=== PATIENT | female | born 1995 | race Caucasian/White ===

== ENCOUNTER 2017-06-30 20:14 | Emergency (ER) | payer OTHER ==
[~2017-06-30] VITALS: Ht 154.9 cm; Wt 87.9 kg
[2017-06-30 20:57] LABS: HEMATOCRIT 30.6 % (34.6-47.8); HEMOGLOBIN 9.5 g/dL (11.7-16.4); WHITE BLOOD COUNT 8.1 x10^3/uL (3.4-10)
[2017-06-30] MEDS ORDERED: SODIUM CHLORIDE FLUSH 10ML SYR IVF ONE (21:00)
[2017-06-30 21:10] LABS: ASPARTATE AMINO TRANSFERASE 15 U/L (15-37); BLOOD UREA NITROGEN 9 mg/dL (7-18)
[2017-06-30 21:32] LABS: TOTAL IRON BINDING CAPACITY 424 mcg/dL (250-450)
[2017-06-30 23:34] VITALS: BP 116/51
== END 2017-06-30 23:36 | disposition home or self-care (01) ==
LOC: ED 23:14
DX: J45.909 Unspecified asthma, uncomplicated (principal); K59.00 Constipation, unspecified; D50.9 Iron deficiency anemia, unspecified
CPT/HCPCS: 36415; 74000; 76700; 80053; 81003; 83540; 83550; 83690; 84703; 85025; 99285

== ENCOUNTER 2018-03-06 12:42 | Emergency (ER) | payer MEDICAID, OTHER ==
[~2018-03-06] VITALS: Ht 154.9 cm; Wt 90.1 kg
[2018-03-06 13:11] VITALS: BP 116/74
[2018-03-06] MEDS ORDERED: DEXAMETHASONE 4 MG/ML, 1ML PO ONE (13:30)
== END 2018-03-06 14:06 | disposition home or self-care (01) ==
LOC: ED 14:00
DX: J02.9 Acute pharyngitis, unspecified (principal); R50.9 Fever, unspecified; G43.909 Migraine, unspecified, not intractable, without status migrainosus; J45.909 Unspecified asthma, uncomplicated; Z88.0 Allergy status to penicillin
CPT/HCPCS: 71046; 99284

== ENCOUNTER 2018-07-29 22:03 | Emergency (ER) | payer OTHER ==
[~2018-07-29] VITALS: Ht 154.9 cm; Wt 88.2 kg
[2018-07-29 22:42] VITALS: BP 110/71
[2018-07-29] MEDS ORDERED: DEXAMETHASONE 1 MG TABLET PO STA (22:57)
[2018-07-29] MEDS ORDERED: CEFDINIR 300 MG CAPSULE PO STA (22:57)
[2018-07-29] MEDS ORDERED: DEXAMETHASONE 4 MG TABLET PO STA (23:00)
[2018-07-29] MEDS ORDERED: DEXAMETHASONE 4 MG TABLET ONE (23:08)
[2018-07-29] MEDS ORDERED: CEFDINIR 300 MG CAPSULE ONE (23:08)
== END 2018-07-29 23:35 | disposition home or self-care (01) ==
LOC: ED 23:29
DX: J02.0 Streptococcal pharyngitis (principal); F17.290 Nicotine dependence, other tobacco product, uncomplicated
CPT/HCPCS: 99283; 99406

== ENCOUNTER 2019-01-06 00:01 | Emergency (ER) | payer MEDICAID ==
[~2019-01-06] VITALS: Ht 154.9 cm; Wt 88.0 kg
[2019-01-06 00:07] VITALS: BP 119/76
[2019-01-06] MEDS ORDERED: ACETAMINOPHEN 500 MG TABLET ONE (00:37)
--- NOTE | 2019-01-06 00:40 | NUR ---
PT MEDICATED PER MAR. POC DISCUSSED. PT AWARE UA IS NEEDED. UA CUP GIVEN. LAB AT BEDSIDE AT THIS TIME.
[2019-01-06 01:00] LABS: ALBUMIN 3.4 g/dL (3.4-5.0); ANION GAP 8 mmol/L (5-15); CALCIUM 8.1 mg/dL (8.5-10.1); CHLORIDE 108 mmol/L (98-107); CREATININE 0.58 mg/dL (0.55-1.02); MEAN CORPUSCULAR HEMOGLOBIN 21.9 pg (27.0-34.8); MEAN CORPUSCULAR HGB CONC 32.1 g/dL (32.4-35.8); MEAN CORPUSCULAR VOLUME 68.2 fL (80-100); MEAN PLATELET VOLUME 7.7 fL (7.4-10.4); PLATELET COUNT 322 x10^3/uL (130-400); RED BLOOD COUNT 4.58 x10^6/uL (3.82-5.3); RED CELL DISTRIBUTION WIDTH 24.6 % (9.6-15.2)
[2019-01-06] MEDS ORDERED: ACETAMINOPHEN 500 MG TABLET PO ONE (01:00)
[2019-01-06 01:46] LABS: CULTURE INDICATED? YES; MICROSCOPIC INDICATED
[2019-01-06 03:04] LABS: BASOPHILS # (AUTO) 0.09 x10^3/uL (0-0.1); BASOPHILS % (AUTO) 1 % (0-1); EOSINOPHILS # (AUTO) 0.13 x10^3/uL (0-0.4); EOSINOPHILS % (AUTO) 2 % (1-7); LYMPHOCYTES # (AUTO) 1.94 x10^3/uL (1-3.4); LYMPHOCYTES % (AUTO) 26 % (22-44); MD SCAN; MONOCYTES # (AUTO) 0.57 x10^3/uL (0.2-0.8); MONOCYTES % (AUTO) 8 % (2-9); NEUTROPHILS # (AUTO) 4.64 x10^3/uL (1.8-6.8); NEUTROPHILS % (AUTO) 63 % (42-75)
== END 2019-01-06 02:19 | disposition home or self-care (01) ==
LOC: ED 00:51
DX: O03.4 Incomplete spontaneous abortion without complication (principal); J45.909 Unspecified asthma, uncomplicated; Z87.891 Personal history of nicotine dependence
CPT/HCPCS: 36415; 76801; 80048; 81001; 82040; 84702; 85025; 87086; 99284

== ENCOUNTER 2019-01-12 12:05 | Emergency (ER) | payer MEDICAID ==
[~2019-01-12] VITALS: Ht 154.9 cm; Wt 87.5 kg
[2019-01-12 12:11] VITALS: BP 131/62
== END 2019-01-12 13:27 | disposition home or self-care (01) ==
LOC: ED 13:09
DX: J02.8 Acute pharyngitis due to other specified organisms (principal); B97.89 Other viral agents as the cause of diseases classified elsewhere; J45.909 Unspecified asthma, uncomplicated
CPT/HCPCS: 87081; 87147; 87880; 99283

== ENCOUNTER 2019-04-21 15:05 | Emergency (ER) | payer MEDICAID ==
[~2019-04-21] VITALS: Ht 154.9 cm; Wt 86.7 kg
[2019-04-21 15:06] VITALS: BP 126/62
[2019-04-21 15:48] LABS: HCG UR SG 1.028 (1.003-1.030); MICROSCOPIC NOT IND
[2019-04-21 15:50] LABS: CULTURE INDICATED? NO
[2019-04-21 17:54] LABS: CLUE CELLS NONE SEEN (NONE SEEN); WET PREP WBCS FEW (FEW)
--- NOTE | 2019-04-21 18:24 | NUR ---
Patient given discharge instructions and they have confirmed that they understand the instructions. Patient ambulatory with steady gait. Pt left with d/c paperwork, prescription, and all personal belongings.
== END 2019-04-21 18:28 | disposition home or self-care (01) ==
LOC: ED 18:10
DX: N89.8 Other specified noninflammatory disorders of vagina (principal); J45.909 Unspecified asthma, uncomplicated; Z87.891 Personal history of nicotine dependence
CPT/HCPCS: 81003; 81025; 87210; 87491; 87591; 87808; 99283

== ENCOUNTER 2019-09-20 18:15 | Emergency (ER) | payer MEDICAID ==
[~2019-09-20] VITALS: Ht 154.9 cm; Wt 90.5 kg
--- NOTE | 2019-09-20 19:39 | NUR ---
C/O MIGRAINE X4 HOURS, STARTED WITH BLURRY VISION. NAUSEATED AT BEGINNING OF MIGRAINE, BUT DENIES NOW. HX MIGRAINES. 11 WEEKS . PT LOOKING FOR BABY SAFE MIGRAINE RELEIF. CONNECTED TO MONITORING. CALL LIGHT IN REACH.
[2019-09-20] MEDS ORDERED: METOCLOPRAMIDE 5 MG/ML, 2ML IVPush ONE (20:30)
[2019-09-20] MEDS ORDERED: DIPHENHYDRAMINE 50 MG/ML, 1ML IVPush ONE (20:30)
[2019-09-20] MEDS ORDERED: SODIUM CHLORIDE 0.9% 1,000ML IVBOLUS ONE (20:30)
[2019-09-20] MEDS ORDERED: METOCLOPRAMIDE 5 MG/ML, 2ML ONE (20:47)
[2019-09-20] MEDS ORDERED: DIPHENHYDRAMINE 50 MG/ML, 1ML ONE (20:47)
--- NOTE | 2019-09-20 21:04 | NUR ---
IV PLACED. MEDS ADMINISTERED PER JAN. PT HAD JUST USED THE RESTROOM. WILL PROVIDE URINE SAMPLE AFTER IVF ADMIN. PT RESTING ON GURNEY WATCHING TV. YAO.
--- NOTE | 2019-09-20 21:53 | NUR ---
PT AMBULATED TO RESTROOM WITH STEADY GAIT TO PROVIDE URINE SAMPLE. SAMPLE COLLECTED AND SENT TO LAB.
[2019-09-20 22:09] LABS: HCG UR SG 1.015 (1.003-1.030)
--- NOTE | 2019-09-20 22:11 | NUR ---
ALL RESULTS ARE BACK AT THIS TIME. CHART UP FOR RECHECK.
[2019-09-20 22:32] LABS: MICROSCOPIC AUTO
[2019-09-20 22:33] LABS: CULTURE INDICATED? YES
--- NOTE | 2019-09-20 22:42 | NUR ---
ALL RESULTS ARE BACK AT THIS TIME. CHART UP FOR RECHECK.
[2019-09-20 22:56] VITALS: BP 114/48
== END 2019-09-20 22:58 | disposition home or self-care (01) ==
LOC: ED 22:24
DX: O26.891 Other specified pregnancy related conditions, first trimester (principal); G43.119 Migraine with aura, intractable, without status migrainosus; J45.909 Unspecified asthma, uncomplicated; Z3A.11 11 weeks gestation of pregnancy
CPT/HCPCS: 81001; 81025; 87086; 96374; 96375; 99283; J1200; J2765; J7030

== ENCOUNTER 2019-10-17 23:03 | Emergency (ER) | payer MEDICAID ==
[~2019-10-17] VITALS: Ht 154.9 cm; Wt 88.0 kg
[2019-10-17 23:06] VITALS: BP 146/70
[2019-10-18 00:32] LABS: RAPID INFLUENZA A Negative (Negative); RAPID INFLUENZA B Negative (Negative)
--- NOTE | 2019-10-18 01:40 | NUR ---
TO ROOM 37
[2019-10-19] MEDS ORDERED: PRENATAL VITAMIN (17:48)
== END 2019-10-18 02:12 | disposition home or self-care (01) ==
LOC: ED 10-18 01:56
DX: O99.512 Diseases of the respiratory system complicating pregnancy, second trimester (principal); O26.892 Other specified pregnancy related conditions, second trimester; J45.909 Unspecified asthma, uncomplicated; G43.909 Migraine, unspecified, not intractable, without status migrainosus; J00 Acute nasopharyngitis [common cold]; Z3A.15 15 weeks gestation of pregnancy
CPT/HCPCS: 71045; 76805; 87400; 93005; 99284

== ENCOUNTER 2019-10-19 17:04 | Emergency (ER) ==
[~2019-10-19] VITALS: Ht 154.9 cm; Wt 88.0 kg
[2019-10-19] MEDS ORDERED: PRENATAL VITAMIN (17:48)
--- NOTE | 2019-10-19 17:48 | NUR ---
PT TO ED FOR COUGH, RUNNY NOSE, FEVER AND BODY ACHES SINCE SATURDAY. PT WAS SEEN HERE AND SWABBED FOR FLU, WHICH SHE REPORTS WAS NEGATIVE. PT STATES SYMPTOMS ARE WORSE. PT STATES SHE WAS TOLD TO FOLLOW UP WITH OB (IS 15 WEEKS ) WHO WON'T SEE HER UNTIL NAME OF VIRUS IS CONFIRMED. PT ONNECTED TO MONITORS. TACHY WITH COUGHING, BUT VSS. NO NEEDS EXPRESSED. CALL LIGHT WITHIN REACH. AWAITNG EDMD ASSESSMENT.
--- NOTE | 2019-10-19 17:51 | NUR ---
DR. CASTRO TO BS FOR ASSESSMENT.
[2019-10-19] MEDS ORDERED: SODIUM CHLORIDE 0.9% 1,000ML IVBOLUS ONE ×2 (18:00→19:00)
[2019-10-19] MEDS ORDERED: IBUPROFEN 600 MG TABLET PO ONE (18:00)
[2019-10-19] MEDS ORDERED: ONDANSETRON 2MG/ML, 2ML IVPush ONE (18:00)
--- NOTE | 2019-10-19 18:02 | NUR ---
BREAK RN: PT SITTING UP ON GURNEY AWAKE & COMFORTABLE, RESPONDS APPROP TO STAFF, NAD, COMFORT MEASURES PROVIDED, CALL LIGHT WITHIN REACH.
[2019-10-19] MEDS ORDERED: IBUPROFEN 600 MG TABLET ONE (18:18)
[2019-10-19] MEDS ORDERED: ONDANSETRON 2MG/ML, 2ML ONE (18:18)
[2019-10-19 18:19] LABS: MEAN CORPUSCULAR HEMOGLOBIN 25.8 pg (27.0-34.8); MEAN CORPUSCULAR VOLUME 78.2 fL (80-100); MEAN PLATELET VOLUME 8.3 fL (7.4-10.4); PLATELET COUNT 178 x10^3/uL (130-400); RED BLOOD COUNT 4.28 x10^6/uL (3.82-5.3)
[2019-10-19 18:21] LABS: ANION GAP 7 mmol/L (5-15); CALCIUM 8.4 mg/dL (8.5-10.1); CHLORIDE 107 mmol/L (98-107); CREATININE 0.52 mg/dL (0.55-1.02)
[2019-10-19 18:48] LABS: BASOPHILS # (AUTO) 0.01 x10^3/uL (0-0.1); BASOPHILS % (AUTO) 0 % (0-1); EOSINOPHILS % (AUTO) 0 % (1-7); LYMPHOCYTES # (AUTO) 0.63 x10^3/uL (1-3.4); LYMPHOCYTES % (AUTO) 16 % (22-44); MD SCAN; MONOCYTES # (AUTO) 0.52 x10^3/uL (0.2-0.8); MONOCYTES % (AUTO) 13 % (2-9); NEUTROPHILS # (AUTO) 2.87 x10^3/uL (1.8-6.8); NEUTROPHILS % (AUTO) 71 % (42-75)
[2019-10-19 18:49] LABS: RED CELL DISTRIBUTION WIDTH 22.1 % (9.6-15.2)
[2019-10-19 18:51] VITALS: BP 113/57
--- NOTE | 2019-10-19 18:52 | NUR ---
PT RESTING IN ROOM. VSS. IVF COMPLETE. NO NEEDS EXPRESSED. CALL LIGHT WITHIN REACH. ALL RESULTS BACK. CHART UP FOR RECHECK.
--- NOTE | 2019-10-19 19:08 | NUR ---
2nd liter ns infusing. vss. no needs expressed. awaiting further orders.
== END 2019-10-19 19:48 | disposition home or self-care (01) ==
LOC: ED 19:16
DX: O26.892 Other specified pregnancy related conditions, second trimester (principal); B34.9 Viral infection, unspecified; J45.909 Unspecified asthma, uncomplicated
CPT/HCPCS: 36415; 80048; 85025; 96374; 99283; J2405; J7030

== ENCOUNTER 2020-01-26 20:17 | Emergency (ER) | payer MEDICAID ==
[~2020-01-26] VITALS: Ht 154.9 cm; Wt 97.9 kg
[~2020-01-26 20:17] MED LIST: PRENATAL VITAMIN
[2020-01-26 20:22] VITALS: BP 138/74
[2020-01-26 21:28] LABS: RAPID INFLUENZA A Negative (Negative); RAPID INFLUENZA B Negative (Negative)
== END 2020-01-26 21:43 | disposition home or self-care (01) ==
LOC: ED 21:10
DX: O98.513 Other viral diseases complicating pregnancy, third trimester (principal); B34.9 Viral infection, unspecified; Z3A.29 29 weeks gestation of pregnancy
CPT/HCPCS: 71046; 87400; 99284

== ENCOUNTER 2020-04-04 03:03 | Outpatient (CLI) | payer MEDICAID ==
[~2020-04-04] VITALS: Ht 154.9 cm; Wt 103.2 kg
[2020-04-04] MEDS ORDERED: PREN1TAB60 PO (17:55)
[2020-04-04] MEDS ORDERED: FERR142T13 PO (17:56)
== END 2020-04-04 04:30 | disposition home or self-care (01) ==
LOC: LDOP 03:03
PROVIDERS: ATTEND Obstetrics & Gynecology
DX: O26.893 Other specified pregnancy related conditions, third trimester (principal); R10.9 Unspecified abdominal pain; Z3A.39 39 weeks gestation of pregnancy
CPT/HCPCS: 59025; 99211; G0463

== ENCOUNTER 2020-04-04 17:26 | Inpatient (IN) | payer MEDICAID ==
[~2020-04-04] VITALS: Ht 154.9 cm; Wt 103.1 kg
[2020-04-04] MEDS ORDERED: PREN1TAB60 PO (17:55)
[2020-04-04] MEDS ORDERED: FERR142T13 PO (17:56)
[2020-04-04] MEDS ORDERED: NEWBORN KIT ONE (18:01)
[2020-04-04] MEDS ORDERED: OXYTOCIN 30U/ 0.9% NaCL 500ML 500 ML IV PRN ×2 (18:07→22:33)
[2020-04-04] MEDS: D5%-LACTATED RINGERS 1,000 ML IV SCH (18:07)
[2020-04-04] MEDS ORDERED: OXYTOCIN 30U/ 0.9% NaCL 500ML 500 ML IV ONE (18:17)
[2020-04-04] MEDS ORDERED: FENTANYL PF 100 MCG/2ML IVPush PRN (18:30)
[2020-04-04] MEDS: LACTATED RINGERS 1,000 ML IV SCH ×2 (18:30→22:57)
[2020-04-04] MEDS ORDERED: TERBUTALINE 1 MG/ML, 1ML IVPush PRN (18:30)
[2020-04-04] MEDS ORDERED: ONDANSETRON 2MG/ML, 2ML IVPush PRN (18:30)
[2020-04-04] MEDS ORDERED: TERBUTALINE 1 MG/ML, 1ML SQ PRN (18:30)
[2020-04-04] MEDS ORDERED: FENTANYL PF 100 MCG/2ML ONE ×2 (18:40→23:30)
[2020-04-04] MEDS: VANCOMYCIN PMX 1GM/200ML 200 ML IVPB SCH (18:46)
[2020-04-04 18:53] LABS: BASOPHILS # (AUTO) 0.04 x10^3/uL (0-0.1); BASOPHILS % (AUTO) 0 % (0-1); EOSINOPHILS # (AUTO) 0.01 x10^3/uL (0-0.4); EOSINOPHILS % (AUTO) 0 % (1-7); LYMPHOCYTES # (AUTO) 1.24 x10^3/uL (1-3.4); LYMPHOCYTES % (AUTO) 10 % (22-44); MD NO; MEAN CORPUSCULAR HEMOGLOBIN 28.4 pg (27.0-34.8); MEAN CORPUSCULAR HGB CONC 33.3 g/dL (32.4-35.8); MEAN CORPUSCULAR VOLUME 85.4 fL (80-100); MEAN PLATELET VOLUME 8.6 fL (7.4-10.4); MONOCYTES # (AUTO) 0.73 x10^3/uL (0.2-0.8); MONOCYTES % (AUTO) 6 % (2-9); NEUTROPHILS # (AUTO) 10.36 x10^3/uL (1.8-6.8); NEUTROPHILS % (AUTO) 84 % (42-75); PLATELET COUNT 215 x10^3/uL (130-400); RED BLOOD COUNT 4.33 x10^6/uL (3.82-5.3); RED CELL DISTRIBUTION WIDTH 18.6 % (9.6-15.2)
[2020-04-04] MEDS ORDERED: OXYTOCIN 30U/ 0.9% NaCL 500ML 500 ML ONE (21:11)
[2020-04-04] MEDS ORDERED: LIDOCAINE 1%, 20ML ONE (21:11)
[2020-04-04 21:21] VITALS: BP 127/69
[2020-04-04] MEDS ORDERED: FENTANYL/BUPIV./NS/PF 250 ML EPIDCONT SCH (22:32)
[2020-04-04] MEDS ORDERED: FENTANYL PF 500 MCG, BUPIVACAINE/PF 0.5%, 30ML 62.5 ML in SODIUM CHLORIDE 0.9% 177.5 ML EPIDCONT SCH (23:00)
[2020-04-04] MEDS ORDERED: BUPIVACAINE 0.25% ONE ×2 (23:30→23:35)
[2020-04-04] MEDS ORDERED: LIDOCAINE/PF 1.5%-EPI 1:200K, 30ML ONE (23:35)
[2020-04-05] MEDS: D5%-LACTATED RINGERS 1,000 ML IV SCH (00:18)
[2020-04-05 01:16] VITALS: BP 107/58
[2020-04-05] MEDS: LACTATED RINGERS 1,000 ML IV SCH ×2 (01:56→09:32)
[2020-04-05] MEDS: VANCOMYCIN PMX 1GM/200ML 200 ML IVPB SCH (06:02)
[2020-04-05] MEDS ORDERED: OXYTOCIN 30U/ 0.9% NaCL 500ML 500 ML ONE (09:18)
[2020-04-05 09:50] VITALS: BP 108/60
[2020-04-05 11:45] VITALS: BP 112/71
[2020-04-05] MEDS: OXYTOCIN 30U/ 0.9% NaCL 500ML 500 ML IV SCH (14:07)
[2020-04-05] MEDS ORDERED: ACETAMINOPHEN 325 MG TABLET PO PRN ×2 (14:30)
[2020-04-05] MEDS ORDERED: ONDANSETRON 2MG/ML, 2ML IV PRN (14:30)
[2020-04-05] MEDS ORDERED: DOCUSATE 100 MG CAPSULE PO PRN (14:30)
[2020-04-05] MEDS ORDERED: OXYcodone/APAP 5/325MG TABLET PO PRN ×2 (14:30)
[2020-04-05] MEDS ORDERED: MISOPROSTOL 200 MCG TABLET PR PRN (14:30)
[2020-04-05] MEDS ORDERED: SIMETHICONE 80 MG CHEW TAB PO PRN (14:30)
[2020-04-05] MEDS ORDERED: RHOGAM FROM BLOOD BANK 1 NOTE EA IM/IV ONE (20:00)
[2020-04-05 20:09] LABS: BASOPHILS # (AUTO) 0.03 x10^3/uL (0-0.1); BASOPHILS % (AUTO) 0 % (0-1); EOSINOPHILS # (AUTO) 0.01 x10^3/uL (0-0.4); EOSINOPHILS % (AUTO) 0 % (1-7); LYMPHOCYTES # (AUTO) 1.59 x10^3/uL (1-3.4); LYMPHOCYTES % (AUTO) 17 % (22-44); MD NO; MEAN CORPUSCULAR HEMOGLOBIN 29.2 pg (27.0-34.8); MEAN CORPUSCULAR HGB CONC 33.9 g/dL (32.4-35.8); MEAN CORPUSCULAR VOLUME 86.2 fL (80-100); MEAN PLATELET VOLUME 8.9 fL (7.4-10.4); MONOCYTES # (AUTO) 0.71 x10^3/uL (0.2-0.8); MONOCYTES % (AUTO) 8 % (2-9); NEUTROPHILS # (AUTO) 6.81 x10^3/uL (1.8-6.8); NEUTROPHILS % (AUTO) 74 % (42-75); PLATELET COUNT 193 x10^3/uL (130-400); RED BLOOD COUNT 3.63 x10^6/uL (3.82-5.3); RED CELL DISTRIBUTION WIDTH 18.6 % (9.6-15.2)
[2020-04-05 21:10] VITALS: BP 129/78
[2020-04-06] MEDS: OXYTOCIN 30U/ 0.9% NaCL 500ML 500 ML IV SCH ×2 (00:07→10:07)
[2020-04-06] MEDS: IBUPROFEN 600 MG TABLET PO PRN ×3 (00:31→18:21)
[2020-04-06 00:44] VITALS: BP 127/75
[2020-04-06 05:30] VITALS: BP 117/74
[2020-04-06 08:20] VITALS: BP 108/70
[2020-04-06] MEDS ORDERED: PRENATAL VIT/IRON/FA 1 EACH TABLET PO SCH (09:00)
[2020-04-06] MEDS ORDERED: IBUP-1222 PO (10:58)
== END 2020-04-06 19:35 | disposition home or self-care (01) | DRG 806 ==
LOC: LDOP 17:26 → LDIP 18:10 → 2NW 04-05 09:47
PROVIDERS: ADMIT Obstetrics & Gynecology; ATTEND Obstetrics & Gynecology
PROC: 3E0234Z Introduction of Serum, Toxoid and Vaccine into Muscle, Percutaneous Approach (ICD-10-PCS; principal; 2020-04-05)
PROC: 10E0XZZ Delivery of Products of Conception, External Approach (ICD-10-PCS; 2020-04-05)
PROC: 10907ZC Drainage of Amniotic Fluid, Therapeutic from Products of Conception, Via Natural or Artificial Opening (ICD-10-PCS; 2020-04-05)
PROC: 3E0R3BZ Introduction of Anesthetic Agent into Spinal Canal, Percutaneous Approach (ICD-10-PCS; 2020-04-05)
PROC: 00HU33Z Insertion of Infusion Device into Spinal Canal, Percutaneous Approach (ICD-10-PCS; 2020-04-05)
PROC: 0W8NXZZ Division of Female Perineum, External Approach (ICD-10-PCS; 2020-04-05)
PROC: 0UQMXZZ Repair Vulva, External Approach (ICD-10-PCS; 2020-04-05)
DX: O26.893 Other specified pregnancy related conditions, third trimester (principal); O99.354 Diseases of the nervous system complicating childbirth; Z37.0 Single live birth; O99.824 Streptococcus B carrier state complicating childbirth; J45.909 Unspecified asthma, uncomplicated; O99.52 Diseases of the respiratory system complicating childbirth; O71.82 Other specified trauma to perineum and vulva; G43.909 Migraine, unspecified, not intractable, without status migrainosus; Z3A.39 39 weeks gestation of pregnancy; Z80.3 Family history of malignant neoplasm of breast; Z82.49 Family history of ischemic heart disease and other diseases of the circulatory system; Z88.0 Allergy status to penicillin; Z67.41 Type O blood, Rh negative; Z23 Encounter for immunization
CPT/HCPCS: 36415; J3490; J7121; S0020; 85025; 85461; 86592; 86850; 86900; G0378; J2790; J3010; J3370; J2590; J7050; J7120

== ENCOUNTER 2020-05-28 12:01 | Emergency (ER) | payer MEDICAID ==
[~2020-05-28] VITALS: Ht 154.9 cm; Wt 91.8 kg
[~2020-05-28 12:01] MED LIST changes: +FERR142T13 PO; +IBUP-1222 PO; +PREN1TAB60 PO
[2020-05-28] MEDS ORDERED: SODIUM CHLORIDE FLUSH 10ML SYR IVF ONE (13:30)
[2020-05-28 13:34] LABS: BASOPHILS # (AUTO) 0.06 x10^3/uL (0-0.1); BASOPHILS % (AUTO) 1 % (0-1); EOSINOPHILS # (AUTO) 0.16 x10^3/uL (0-0.4); EOSINOPHILS % (AUTO) 2 % (1-7); LYMPHOCYTES # (AUTO) 1.71 x10^3/uL (1-3.4); LYMPHOCYTES % (AUTO) 19 % (22-44); MD NO; MEAN CORPUSCULAR HEMOGLOBIN 27.9 pg (27.0-34.8); MEAN CORPUSCULAR VOLUME 84.6 fL (80-100); MEAN PLATELET VOLUME 7.8 fL (7.4-10.4); MONOCYTES # (AUTO) 0.74 x10^3/uL (0.2-0.8); MONOCYTES % (AUTO) 8 % (2-9); NEUTROPHILS % (AUTO) 70 % (42-75); PLATELET COUNT 313 x10^3/uL (130-400); RED BLOOD COUNT 4.23 x10^6/uL (3.82-5.3); RED CELL DISTRIBUTION WIDTH 15.2 % (9.6-15.2)
[2020-05-28 13:47] LABS: ALBUMIN 3.6 g/dL (3.4-5.0); ANION GAP 6 mmol/L (5-15); CALCIUM 9.2 mg/dL (8.5-10.1); CHLORIDE 113 mmol/L (98-107)
[2020-05-28 13:49] LABS: CREATININE 0.73 mg/dL (0.55-1.02)
--- NOTE | 2020-05-28 14:20 | NUR ---
PROFESSOR OF FOREST PLANNING: PT AMBULATORY WITH STEADY GAIT TO ROOM AT THIS TIME .YAO
--- NOTE | 2020-05-28 14:23 | NUR ---
FIRST CONTACT WITH PT. PT STATED "MY TONSILS HURT. PAINFUL SWALLOWING SINCE SATURDAY" PT 'S AOX4. RESPS EVEN AND UNLABORED. PT DENIES ANY OTHER SX.
[2020-05-28] MEDS ORDERED: DEXAMETHASONE 4 MG/ML, 1ML IV ONE (15:00)
[2020-05-28] MEDS ORDERED: CLINDAMYCIN PMX 900MG/50ML 50 ML IV ONE (15:00)
[2020-05-28] MEDS ORDERED: SODIUM CHLORIDE 0.9% 1,000ML IVBOLUS ONE (15:00)
[2020-05-28] MEDS ORDERED: CLINDAMYCIN PMX 900MG/50ML 50 ML ONE (15:01)
[2020-05-28] MEDS ORDERED: DEXAMETHASONE 4 MG/ML, 5ML ONE (15:01)
--- NOTE | 2020-05-28 15:22 | NUR ---
PIV EST ON R AC WITH NO COMPLICATIONS. PT MEDICATED PER EMAR. ABX/NS INFUSING AT THIS TIME AFTER BC X 2 TIMES. PT TOLERATED WELL.
--- NOTE | 2020-05-28 15:23 | NUR ---
WARM BLANKET GIVEN AT THIS TIME PER REQUEST.
[2020-05-28] MEDS ORDERED: OMNIPAQUE 350 MG/ML, 75ML BOTTLE ONE (16:08)
[2020-05-28] MEDS ORDERED: LIDOCAINE-MPF 1%, 2ML ONE (16:18)
[2020-05-28] MEDS ORDERED: BENZOCAINE AEROSOL SPRAY 20%, 60ML ONE (16:18)
--- NOTE | 2020-05-28 16:21 | NUR ---
PA AT BEDSIDE FOR I&D AT THIS TIME.
[2020-05-28] MEDS ORDERED: BENZOCAINE AEROSOL SPRAY 20%, 60ML TP ONE (16:30)
[2020-05-28] MEDS ORDERED: LIDOCAINE-MPF 1%, 5ML INFIL ONE (16:30)
[2020-05-28 16:52] VITALS: BP 123/66
--- NOTE | 2020-05-28 16:53 | NUR ---
Patient given discharge instructions and they have confirmed that they understand the instructions. Patient ambulatory with steady gait.
== END 2020-05-28 16:54 | disposition home or self-care (01) ==
LOC: ED 15:26
DX: J36 Peritonsillar abscess (principal); J45.909 Unspecified asthma, uncomplicated; Z87.891 Personal history of nicotine dependence
CPT/HCPCS: 36415; 42700; 70491; 80048; 82040; 85025; 87040; 87081; 87880; 96365; 96366; 96375; 99285; J1100; J7030; Q9967

== ENCOUNTER 2020-12-26 12:24 | Emergency (ER) | payer MEDICAID ==
[~2020-12-26] VITALS: Ht 154.9 cm; Wt 94.1 kg
--- NOTE | 2020-12-26 13:19 | NUR ---
ELECTRIC RANGE SERVICER: PT AMBULATORY TO ROOM FROM LOBBY AT THIS TIME WITH STEADY GAIT WITH PAPERHANGER SUPERVISOR
--- NOTE | 2020-12-26 13:21 | NUR ---
PT MISPLACED KEYS PRIOR TO COMING INTO ED ROOM. CALL TO SECURITY AND SECURITY DENIES ANY KEYS TURNED IN TODAY. PT AWARE. PT AMBULATES WELL TO ED ROOM INDEPENDENTLY.
[2020-12-26 13:26] LABS: BASOPHILS % (AUTO) 1 % (0-1); EOSINOPHILS % (AUTO) 3 % (1-7); LYMPHOCYTES % (AUTO) 35 % (22-44); MEAN CORPUSCULAR HEMOGLOBIN 26.6 pg (27.0-34.8); MEAN CORPUSCULAR HGB CONC 33.2 g/dL (32.4-35.8); MEAN PLATELET VOLUME 7.5 fL (7.4-10.4); MONOCYTES % (AUTO) 8 % (2-9); NEUTROPHILS % (AUTO) 53 % (42-75); PLATELET COUNT 319 x10^3/uL (130-400); RED BLOOD COUNT 4.95 x10^6/uL (3.82-5.3); RED CELL DISTRIBUTION WIDTH 16.2 % (9.6-15.2)
[2020-12-26 13:30] LABS: MD NO
--- NOTE | 2020-12-26 13:30 | NUR ---
PT HERE WITH C/O LEFT FLANK PAIN X4 DAYS. VITALS MONITORS IN PLACE, CALL LIGHT PLACED WITHIN REACH.
[2020-12-26 13:36] LABS: MICROSCOPIC NOT IND
[2020-12-26 13:38] LABS: ALANINE AMINOTRANSFERASE 24 U/L (12-78); ALBUMIN 3.6 g/dL (3.4-5.0); ANION GAP 6 mmol/L (5-15); CALCIUM 8.8 mg/dL (8.5-10.1); CHLORIDE 114 mmol/L (98-107)
[2020-12-26 13:43] LABS: ALKALINE PHOSPHATASE 88 U/L (45-117); BILIRUBIN,TOTAL 0.3 mg/dL (0.2-1.0); CREATININE 0.79 mg/dL (0.55-1.02); TOTAL PROTEIN 7.4 g/dL (6.4-8.2)
[2020-12-26 14:51] VITALS: BP 110/56
== END 2020-12-26 15:02 | disposition home or self-care (01) ==
LOC: ED 14:45
DX: R10.9 Unspecified abdominal pain (principal); M54.5 Low back pain
CPT/HCPCS: 36415; 76770; 80053; 81003; 83690; 84703; 85025; 99284